=== PATIENT | female | born 1990 | race Hispanic/Latino ===

== ENCOUNTER 2016-08-31 16:29 | Emergency (ER) | payer MEDICAID ==
[~2016-08-31] VITALS: Ht 152.4 cm; Wt 79.1 kg
[2016-08-31 16:41] VITALS: BP 122/78; PULSE 92; RESP 16; O2SAT 99
[2016-08-31 18:34] LABS: BASOPHILS % (AUTO) 0.7 % (0-3); EOSINOPHILS % (AUTO) 0.8 % (0-5); MONOCYTES % (AUTO) 7.4 % (4-12); Mean Corpuscular Hemoglobin 26.4 pg (27.0-35.0); Mean Corpuscular Volume 83.6 fL (81-100); NEUTROPHILS % (AUTO) 64.2 % (40-74); Platelet Count 385 bil/L (150-400)
--- NOTE | 2016-08-31 18:38 | ED.REPORT ---
HPI- Female Date of Service August 31, 2016 ED Provider: Prabhjot Barr MD A 26 year old female with a history of hypotension and vaginal delivery on 07/21 presents to the ED due to vaginal bleeding. The pt began experiencing vaginal bleeding following delivery. She was diagnosed with an infection and placed on antibiotics, and was discharged after three days. The bleeding ended after two weeks, but returned one week ago. She was spotting for two days, which she attributed to a menstrual period, but began passing thick blood on the third day. The pt is now changing a pad every two hours and feels weak with body aches and fever. She also admits to intermittent left-sided abdominal and back pain, but denies vomiting, dysuria, nausea, sore throat or cough. The pt states that she experienced similar symptoms just being diagnosed with an infection. Nursing Notes Stated Complaint: POST OP BLEEDING AFTER Chief Complaint: Female Abdominal Pain Nursing Notes Reviewed: Yes Allergies: Coded Allergies: No Known Allergies (Unverified , 08/31/16) Scheduled Doxycycline Monohyd (Doxycycline Monohyd) 100 Mg Capsule 100 MG PO BID Medroxyprogesterone Acetate (Provera) 10 Mg Tablet 10 MG PO DAILY Metronidazole (Metronidazole) 500 Mg Tablet 500 MG PO QID General Time Seen by MD: 18:36 Chief Complaint Vaginal bleeding... Hx Obtained From: Patient Arrived By: Walk-in Sudden in Onset?: No Onset Occurred: 1 week ago Symptom Duration: Since onset Recent Healthcare: Recent doctor visit, Recent hospitalization Similar Sx Previous: Yes Past Medical History Past Medical History hypotension vaginal deliver 07/21/2016 Past Surgical History none reported Smoking History Never Smoker Social History lives in [place] Drug Use: Denies drug use Other Social History: Good social support, Ambulatory Status Independent Review of Systems Constitutional: Reports: Fever, Weakness - generalized Ears / Nose / Throat: Denies: Sore throat GI: Reports: Abdominal pain, Denies: Nausea, Vomiting Female: Reports: Vaginal bleeding - abnl, Denies: Dysuria Musculoskeletal: Reports: Back pain, Myalgia Skin: Denies Rash Complete sys rev & neg: except as marked. Respiratory: Denies: Non-productive cough Physical Exam Initial Vital Signs Vital Signs (First) Date Time Temp Pulse Resp B/P Pulse Ox O2 Delivery O2 Flow Rate FiO2 08/31/16 16:41 37.9 92 16 122/78 99 Room Air Initial VS: Reviewed Female Genitourinary: Dietitian Research present, Atraumatic, External genitalia NL scant bleeding from cervix, cervix otherwise normal significant cervical motion tend uterine tenderness to palpation on manual exam no adnexal mass General/Constitutional: Awake, Alert Respiratory / Chest: Atraumatic, Breath sounds NL, Breath sounds = bilat, No respiratory distress Cardiovascular: Heart rate NL, Regular rhythm, Heart sounds NL Abdomen: Atraumatic, Soft, Non-tender Back: Atraumatic, Full range of motion left CVAT Skin: Atraumatic, Color NL, No rash, Warm, Dry Head / Eyes: Atraumatic, Normocephalic, PERRL, EOMI ENT: Atraumatic, Airway patent, Mucous membranes moist Neck: Atraumatic, Supple, Full range of motion Upper Extremity / MS: Atraumatic, Full range of motion Lower Extremity / Pelvis / MS: Atraumatic, Full range of motion Neurologic: Oriented X3, Speech NL, No motor deficits, No sensory deficits Psychiatric: Affect NL, Mood NL Interpretation & Diagnostics Interpretation & Diagnostics: US: trace free fluid in abdomen thickened endometrial stripe with dynamic uterine contractions Lab Results Interpretation Result Diagram: 08/31/16 1825 08/31/16 1825 Test 08/31/16 18:25 08/31/16 18:40 White Blood Count 11.3th/mm3 (3.8-10.1) Red Blood Count 3.71mil/mm3 (3.90-5.20) Hemoglobin 9.8g/dL (12.0-15.6) Hematocrit 31.0% (35.0-46.0) Mean Corpuscular Volume 83.6fL (81-100) Mean Corpuscular Hemoglobin 26.4pg (27.0-35.0) Mean Corpuscular Hemoglobin Concent 31.6% (32.0-37.0) Red Cell Distribution Width 13.6% (12.3-15.4) Platelet Count 385bil/L (150-400) Neutrophils (%) (Auto) 64.2% (40-74) Lymphocytes (%) (Auto) 26.6% (14-46) Monocytes (%) (Auto) 7.4% (4-12) Eosinophils (%) (Auto) 0.8% (0-5) Basophils (%) (Auto) 0.7% (0-3) Sodium Level 139mEq/L (134-144) Potassium Level 3.6mEq/L (3.5-5.2) Chloride Level 102mEq/L (97-108) Carbon Dioxide Level 25mmol/L (18-29) Blood Urea Nitrogen 12mg/dL (6-20) Creatinine 0.66mg/dL (0.57-1.00) Estimat Glomerular Filtration Rate 155mL/min (>59) Glucose Level 109mg/dL (60-99) Calcium Level 9.1mg/dL (8.5-10.1) Magnesium Level 1.9mg/dL (1.6-2.6) Total Bilirubin 0.2mg/dL (0.0-1.2) Aspartate Amino Transf (AST/SGOT) 31U/L (0-50) Alanine Aminotransferase (ALT/SGPT) 40U/L (0-32) Alkaline Phosphatase 163U/L (25-150) Total Protein 7.3g/dL (6.4-8.4) Albumin 3.9g/dL (3.4-5.0) Lipase 27U/L (13-60) HCG Beta Subunit < 0.500mIU/mL Hold Davison Top Tube Received (Received) Urine Color Dark yellow (YELLOW) Urine Appearance Slightly cloudy Urine pH 6.0 (5.0-8.0) Urine Specific [place] 1.025 (1.003-1.035) Urine Protein 100mg/dL (NEG,TRACE) Urine Glucose (UA) Negativemg/dL (NEGATIVE) Urine Ketones Tracemg/dL (NEGATIVE) Urine Occult Blood Large (NEGATIVE) Urine Nitrite Negative (NEGATIVE) Urine Bilirubin Negative (NEGATIVE) Urine Urobilinogen 1.0mg/dL (NORMAL) Urine Leukocyte Esterase Trace (NEGATIVE) Urine RBC 11-50/hpf (0-2) Urine WBC 0-5/hpf (0-5) Urine Epithelial Cells None/hpf (NONE-MOD) Urine Crystals None seen (NONE SEEN) Urine Bacteria Few/hpf (NONE-FEW) Urine Hyaline Casts None/lpf (NONE) Urine Granular Casts None seen (NONE SEEN) Urine Waxy Casts None seen (NONE SEEN) Urine Red Blood Cell Casts None seen (NONE SEEN) Urine White Blood Cell Casts None seen (NONE SEEN) Urine Mucus None seen (None Seen) Urine Trichomonas None seen (NONE SEEN) Urine Yeast None (NONE SEEN) Urinalysis Comment None Urine Culture Reflexed Indicated Hold Urine Received (Received) Re-Eval/Medical Decision Med Decision/Clinical Course After careful evaluation I believe that it is difficult to differentiate between PID and endometritis. Certainly this is a long time after delivery to diagnosis endometritis. GC chlamydia culture of the urine is sent. I discussed the case with HAND SPLITTER/OB who recommended empiric Doxy and Flagyl for 2 weeks. I have also put her on Provera to stop the bleeding. I think it safe to let her go home at this point. Re-Evaluation/Progress #1: Time of Eval: 19:16 Re-Evaluation/Progress Note: Pt rechecked, who is comfortable. Pelvic examination is performed. Re-Evaluation/Progress #2: Time of Eval: 21:40 Patient Status: Condition improved Re-Evaluation/Progress Note: Pt rechecked, who is feeling well. The diagnosis and plan for discharge are discussed. The pt understands and agrees with the plan. All questions are addressed at this time. Consultation #1: Referral / Consult Name: Lewis Balderas MD Call Returned at: 20:51 Note: Spoke with Dr. Balderas, HAND SPLITTER, regarding pt's case. Dr. Balderas is unable to consult. Consultation #2: Referral / Consult Name: China Conti MD Call Returned at: 21:28 Note: Consulted with Dr. Conti, OB, regarding pt's case. Dr. Conti recommends doxycycline, Flagyl, and discharge with follow up. 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 Conti regarding medication options for the pt. Counseled Regarding: Diagnosis, Lab results, Need for follow-up, When/why to return to ED Discharge & Departure Impression: Primary Impression: Pelvic infection Disposition: Home Discharge Condition All VS Reviewed: Yes Condition: Stable Patient Instructions: Pelvic Pain in Women (ED) Additional Instructions: Take ibuprofen 800 mg every 8 hours. This should help the pain. Additionally, you could take Tylenol 1000 mg every 6 hours. Take metronidazole and doxycycline as prescribed for the infection in the uterus. Take medroxyprogesterone acetate (Provera) once daily to help control the bleeding. Follow-up in the emergency Department right away for excessive bleeding/ vomiting or if you are too ill to walk around. Otherwise, follow-up with your OB provider in the coming days for further evaluation. Referrals: [facility] Attestation Portions of this note were transcribed by Avril Majano. I, Dr. Barr personally performed the history, physical exam and medical decision-making; I reviewed and confirmed the accuracy of the information in the transcribed note. Signed by: Martín Gacria, 08/31/16 and 2200. copies to: [facility] Prabhjot Barr MD August 31, 2016 18:38 AVRIL MAJANO August 31, 2016 18:47
[2016-08-31 18:57] LABS: Magnesium 1.9 mg/dL (1.6-2.6)
[2016-08-31 19:05] LABS: APPEARANCE,URINE SLIGHTLY CLOUDY (CLEAR,HAZY); COLOR,URINE DARK YELLOW (YELLOW)
[2016-08-31 19:06] LABS: OCCULT BLOOD,URINE LARGE (NEGATIVE)
[2016-08-31 20:21] VITALS: BP 134/75; PULSE 80; RESP 12; O2SAT 100
[2016-08-31] MEDS ORDERED: MedroxyPROGESTERone 5 mg Tablet PO ONE (21:55)
[2016-08-31] MEDS ORDERED: DOXY100C43 PO (22:02)
[2016-08-31] MEDS ORDERED: MEDR10TA PO (22:02)
[2016-08-31] MEDS ORDERED: METR500T19 PO (22:02)
[2016-08-31 22:32] VITALS: BP 134/75; PULSE 80; RESP 12; O2SAT 100
--- NOTE | 2016-09-01 08:07 | DRSVH ---
PROCEDURE: US PELVIC SONOGRAM + TRANSVAGINAL SONOGRAM INDICATIONS: posty bleeding/fever TECHNIQUE: Real-time scanning was performed of the pelvic organs, with image documentation. Additional endovagi nal scanning was necessary due to incomplete visualization of the adnexal and endometrial structures by transabdominal scanning. COMPARISON: None. FINDINGS: Transabdominal scanning: Limited scanning through the kidneys shows no hydronephrosis. No pathologi c free abdominal or pelvic fluid. Endovaginal scanning: Uterus: Uterus is normal in size at 6.2 x 3.7 x 4.8 cm. The endometrium measures 3 mm in combined t hickness. Ovaries: Within normal limits bilaterally. IMPRESSION: No acute process. Concordant with preliminary interpretation. Dictated by: Debbie Bills M.D. on 09/01/2016 at 8:04 Approved by: Debbie Bills M.D. on 09/01/2016 at 8:05
== END 2016-08-31 22:34 | disposition home or self-care (01) ==
LOC: SED 16:29
DX: N73.9 Female pelvic inflammatory disease, unspecified (principal); I95.9 Hypotension, unspecified; Z98.890 Other specified postprocedural states; Z87.59 Personal history of other complications of pregnancy, childbirth and the puerperium